=== PATIENT | male | born 1980 | race Two or more races ===

== ENCOUNTER 2023-01-06 00:34 | Emergency (ER) | payer SELFPAY ==
[~2023-01-06] VITALS: Ht 193 cm; Wt 113.6 kg
[2023-01-06 01:07] VITALS: TEMP 98.7
[2023-01-06] MEDS ORDERED: KETOROLAC TROMETHAMINE 30 MG/ML VIAL IM ONE (02:15)
[2023-01-06] MEDS ORDERED: HYDROCODONE/ACETAMINOPHEN 10-325 MG TABLET PO ONE (03:30)
[2023-01-06] MEDS ORDERED: HYDR-4723 PO (03:31)
[2023-01-06] MEDS ORDERED: IBUP-1493 PO (03:31)
[2023-01-06 04:08] VITALS: BP 140/83; PULSE 90; RESP 17
== END 2023-01-06 06:12 | disposition home or self-care (01) ==
LOC: EMS 00:34
DX: S22.059A Unspecified fracture of T5-T6 vertebra, initial encounter for closed fracture (principal); S22.069A Unspecified fracture of T7-T8 vertebra, initial encounter for closed fracture; R15.9 Full incontinence of feces; G89.29 Other chronic pain; X58.XXXA Exposure to other specified factors, initial encounter; Y93.89 Activity, other specified; Y92.89 Other specified places as the place of occurrence of the external cause; Y99.8 Other external cause status
CPT/HCPCS: 99285; 72128; 72131; 96372; J1885